=== PATIENT | male | born 1940 | race Caucasian/White ===

== ENCOUNTER 2017-05-26 09:54 | Observation (INO) | payer MEDICARE ==
[~2017-05-26] VITALS: Ht 167.6 cm; Wt 62.7 kg
[~2017-05-26 09:54] MED LIST: ASPI81CH; CLON.5 PO; DUTA.5 PO; ESCI20 PO; Flonase 0.05% N16 GM; OXYACE5T PO; PHENA200 PO; TAMS.4ER PO
[2017-05-26 10:39] LABS: BASOPHILS ABSOLUTE AUTO 0.03 K/mm3 (0.00-0.23); BASOPHILS PERCENT AUTO 1 % (0-2); EOSINOPHILS ABSOLUTE AUTO 0.06 K/mm3 (0.00-0.68); EOSINOPHILS PERCENT AUTO 1 % (0-6); Hematocrit 43.2 % (37.0-53.0); Hemoglobin 14.1 g/dL (13.5-17.5); IMMATURE GRAN PERCENT AUTO 0 % (0-1); LYMPHOCYTES ABSOLUTE AUTO 1.54 K/mm3 (0.84-5.20); LYMPHOCYTES PERCENT AUTO 30 % (21-46); MONOCYTES ABSOLUTE AUTO 0.46 K/mm3 (0.16-1.47); MONOCYTES PERCENT AUTO 9 % (4-13); Mean Corpuscular HGB 31.2 pg (26.0-34.0); Mean Corpuscular HGB Conc 32.6 g/dL (31.5-36.5); Mean Corpuscular Volume 96 fL (80-100); Mean Platelet Volume 10.3 fL (9.1-12.4); NEUTROPHILS ABSOLUTE AUTO 2.98 K/mm3 (1.96-9.15); NEUTROPHILS PERCENT AUTO 59 % (41-73); Platelet Count 146 K/mm3 (150-400); RDW Coefficient Variation 12.9 % (11.7-14.2); RDW Standard Deviation 45.8 fL (35.1-46.3); Red Blood Cell Count 4.52 M/mm3 (4.30-5.90); White Blood Cell Count 5.07 K/mm3 (4.00-11.30)
[2017-05-26 11:01] LABS: Alanine Aminotransfer (ALT/SGP 27 U/L (12-78); Albumin, Blood 3.5 g/dL (3.4-5.0); Albumin/Globulin Ratio 1.1 (0.8-1.8); Alk Phos 67 U/L (50-136); Anion Gap 6 mmol/L (6-16); Aspartate Aminotrans (AST/SGOT 21 U/L (12-37); Bilirubin, Total 0.6 mg/dL (0.1-1.0); Blood Urea Nitrogen 23 mg/dL (8-24); Bun/Creatinine Ratio 31.7 (12.0-20.0); CO2, Blood 27 mmol/L (21-32); Calcium, Blood 8.3 mg/dL (8.5-10.1); Chloride, Blood 107 mmol/L (98-108); Creatinine, Blood 0.73 mg/dL (0.60-1.20); Globulin, Blood 3.3 g/dL (2.2-4.0); Glomerular Filtration Rate >60 (60-); Glucose, Blood 121 mg/dL (70-99); Magnesium, Blood 1.8 mg/dL (1.6-2.4); Potassium, Blood 3.8 mmol/L (3.5-5.5); Sodium, Blood 140 mmol/L (136-145); Total Protein, Blood 6.8 g/dL (6.4-8.2)
[2017-05-26 11:09] LABS: Free Thyroxine 0.93 ng/dL (0.70-1.60); Troponin I <0.015 ng/mL (0.000-0.040)
[2017-05-27 04:42] LABS: BASOPHILS ABSOLUTE AUTO 0.02 K/mm3 (0.00-0.23); BASOPHILS PERCENT AUTO 0 % (0-2); EOSINOPHILS ABSOLUTE AUTO 0.06 K/mm3 (0.00-0.68); EOSINOPHILS PERCENT AUTO 1 % (0-6); Hematocrit 39.1 % (37.0-53.0); Hemoglobin 12.8 g/dL (13.5-17.5); IMMATURE GRAN ABSOLUTE AUTO 0.01 K/mm3 (0.00-0.10); IMMATURE GRAN PERCENT AUTO 0 % (0-1); LYMPHOCYTES ABSOLUTE AUTO 1.63 K/mm3 (0.84-5.20); LYMPHOCYTES PERCENT AUTO 35 % (21-46); MONOCYTES ABSOLUTE AUTO 0.53 K/mm3 (0.16-1.47); MONOCYTES PERCENT AUTO 11 % (4-13); Mean Corpuscular HGB 31.2 pg (26.0-34.0); Mean Corpuscular HGB Conc 32.7 g/dL (31.5-36.5); Mean Corpuscular Volume 95 fL (80-100); Mean Platelet Volume 10.3 fL (9.1-12.4); NEUTROPHILS ABSOLUTE AUTO 2.48 K/mm3 (1.96-9.15); NEUTROPHILS PERCENT AUTO 52 % (41-73); Platelet Count 128 K/mm3 (150-400); RDW Coefficient Variation 12.9 % (11.7-14.2); RDW Standard Deviation 45.3 fL (35.1-46.3); White Blood Cell Count 4.73 K/mm3 (4.00-11.30)
[2017-05-27 05:03] LABS: Alanine Aminotransfer (ALT/SGP 21 U/L (12-78); Albumin, Blood 3.1 g/dL (3.4-5.0); Alk Phos 57 U/L (50-136); Anion Gap 6 mmol/L (6-16); Aspartate Aminotrans (AST/SGOT 21 U/L (12-37); Bilirubin, Total 0.6 mg/dL (0.1-1.0); Blood Urea Nitrogen 24 mg/dL (8-24); Bun/Creatinine Ratio 32.3 (12.0-20.0); CO2, Blood 26 mmol/L (21-32); Calcium, Blood 8.2 mg/dL (8.5-10.1); Chloride, Blood 109 mmol/L (98-108); Cholesterol 155 mg/dL (50-200); Creatinine, Blood 0.74 mg/dL (0.60-1.20); Glomerular Filtration Rate >60 (60-); Glucose, Blood 91 mg/dL (70-99); Potassium, Blood 3.7 mmol/L (3.5-5.5); Sodium, Blood 141 mmol/L (136-145); Total Protein, Blood 6.1 g/dL (6.4-8.2); Triglycerides 49 mg/dL (30-160); Very Low Density Lipoprot Chol 9 mg/dL (6-32)
[2017-05-27 05:06] LABS: CHOL/HDL RATIO 3.5; HDL Cholesterol 44 mg/dL (>39); LDL/HDL RATIO 2.3; Low Density Lipoprotein Chol 101 mg/dL (0-110); Troponin I 0.144 ng/mL (0.000-0.040)
[2017-05-28] MEDS ORDERED: Lopressor 25 mg25 MG PO (08:21)
[2017-05-28] MEDS ORDERED: MIRT30 PO (08:22)
[2017-05-28] MEDS ORDERED: XARELTO20 MG PO (08:24)
[2017-09-11] MEDS ORDERED: Amiodarone HCl200 MG PO (15:23)
[2017-09-11] MEDS ORDERED: Cardizem CD 12120 MG PO (17:14)
== END 2017-05-28 11:26 | disposition home or self-care (01) ==
LOC: ER 09:54 → PCU 09:55 → ER 12:37 → PCU 12:37
PROVIDERS: Emergency Medicine; Internal Medicine
DX: I48.0 Paroxysmal atrial fibrillation (principal); F41.9 Anxiety disorder, unspecified; N40.0 Benign prostatic hyperplasia without lower urinary tract symptoms; R79.89 Other specified abnormal findings of blood chemistry; I25.10 Atherosclerotic heart disease of native coronary artery without angina pectoris; I51.7 Cardiomegaly; Z79.899 Other long term (current) drug therapy
CPT/HCPCS: 36415; 71046; 80053; 80061; 83735; 83880; 84439; 84443; 84484; 85025; 93005; 93010; 93306; 96365; 96366; 96376; 99285; G0378

== ENCOUNTER 2024-09-12 10:53 | Day surgery (SDC) | payer OTHER ==
[~2024-09-12] VITALS: Ht 170.2 cm; Wt 60.7 kg
[~2024-09-12 10:53] MED LIST changes: +Amiodarone HCl200 MG PO; +Balanced Salt Epinephrine Irrigation Solution 500 mL IR SCH; +Cardizem CD 12120 MG PO; +Lopressor 25 mg25 MG PO; +MIRT30 PO; +Moxifloxacin HCL 0.5 MG/0.1 ML 0.4MLSYR RIGHTEYE SCH; +NS 500 ML IV ONE; +NS 500 ML ONE; +Ondansetron 4 MG SoluTab MM PRN; +PHENYLEPHRINE\\TROPICAMIDE\\TETRACAINE OPHTHALMIC DILATING SOLN RIGHTEYE PRN; +Povidone-Iodine 450 DROP/30 ML Solution ONE; +Povidone-Iodine 450 DROP/30 ML Solution RIGHTEYE SCH; +Tetracaine HCl/Pf 0.5% Opth Soln 4 ml ONE; +XARELTO20 MG PO; +diazePAM 5 MG,diazePAM 2 MG PO SCH
[2024-09-12] MEDS ORDERED: METO25ER PO (11:44)
[2024-09-12] MEDS ORDERED: CARB25 PO (11:44)
[2024-09-12] MEDS ORDERED: NS 500 ML IV ONE (11:47)
--- NOTE | 2024-09-12 11:48 | NUR ---
09/12/24 Elizabeth Huitron CALL LIGHT WITHIN REACH.
[2024-09-12] MEDS ORDERED: Midazolam HCl 1MG / ML 2ML Vial ONE (12:15)
[2024-09-12] MEDS ORDERED: FentaNYL Citrate 50 MCG/ML 2 ML Injection ONE (12:15)
[2024-09-12 12:53] VITALS: BP 150/73
== END 2024-09-12 13:06 | disposition home or self-care (01) ==
LOC: ORSCSDS 10:53
PROVIDERS: Student in an Organized Health Care Education/Training Program
PROC: 08RJ3JZ Replacement of Right Lens with Synthetic Substitute, Percutaneous Approach (ICD-10-PCS; principal; 2024-09-12 12:30)
DX: H25.813 Combined forms of age-related cataract, bilateral (principal); G20.A1 Parkinson's disease without dyskinesia, without mention of fluctuations; I48.0 Paroxysmal atrial fibrillation; E78.00 Pure hypercholesterolemia, unspecified; H40.003 Preglaucoma, unspecified, bilateral; Z79.01 Long term (current) use of anticoagulants; Z79.899 Other long term (current) drug therapy
CPT/HCPCS: J2003; J2250; J3010; J7040; V2632

== ENCOUNTER 2024-09-19 08:52 | Day surgery (SDC) | payer OTHER ==
[~2024-09-19] VITALS: Ht 170.2 cm; Wt 60.5 kg
[~2024-09-19 08:52] MED LIST changes: +CARB25 PO; +METO25ER PO; +Moxifloxacin HCL 0.5 MG/0.1 ML 0.4MLSYR LEFTEYE SCH; -Moxifloxacin HCL 0.5 MG/0.1 ML 0.4MLSYR RIGHTEYE SCH; -Ondansetron 4 MG SoluTab MM PRN; +PHENYLEPHRINE\\TROPICAMIDE\\TETRACAINE OPHTHALMIC DILATING SOLN LEFTEYE PRN; -PHENYLEPHRINE\\TROPICAMIDE\\TETRACAINE OPHTHALMIC DILATING SOLN RIGHTEYE PRN; +Povidone-Iodine 450 DROP/30 ML Solution LEFTEYE SCH; -Povidone-Iodine 450 DROP/30 ML Solution RIGHTEYE SCH; -diazePAM 5 MG,diazePAM 2 MG PO SCH
[2024-09-19] MEDS ORDERED: NS 500 ML IV ONE (10:16)
[2024-09-19] MEDS ORDERED: ALFU10 PO (10:23)
[2024-09-19] MEDS ORDERED: SERT100 PO (10:24)
[2024-09-19] MEDS ORDERED: FINA5 (10:24)
--- NOTE | 2024-09-19 10:31 | NUR ---
09/19/24 [id number] Elizabeth Waters CALL LIGHT WITHIN REACH.
[2024-09-19] MEDS ORDERED: Midazolam HCl 1MG / ML 2ML Vial ONE (11:08)
[2024-09-19] MEDS ORDERED: Glycopyrrolate 0.2 MG/ML 5ML VIAL ONE (11:08)
[2024-09-19 11:42] VITALS: BP 154/79
== END 2024-09-19 11:51 | disposition home or self-care (01) ==
LOC: ORSCSDS 08:52
PROVIDERS: Student in an Organized Health Care Education/Training Program
PROC: 08RK3JZ Replacement of Left Lens with Synthetic Substitute, Percutaneous Approach (ICD-10-PCS; principal; 2024-09-19 10:30)
DX: H25.812 Combined forms of age-related cataract, left eye (principal); Z96.1 Presence of intraocular lens; H52.202 Unspecified astigmatism, left eye; H40.003 Preglaucoma, unspecified, bilateral; Z86.73 Personal history of transient ischemic attack (TIA), and cerebral infarction without residual deficits; G20.A1 Parkinson's disease without dyskinesia, without mention of fluctuations; I48.0 Paroxysmal atrial fibrillation; E78.00 Pure hypercholesterolemia, unspecified; Z79.899 Other long term (current) drug therapy; Z79.01 Long term (current) use of anticoagulants
CPT/HCPCS: J2250; J7040; V2632